=== PATIENT | male | born 1980 | race African-American/Black ===

== ENCOUNTER 2017-08-13 23:49 | Emergency (ER) | payer SELFPAY ==
[~2017-08-13] VITALS: Ht 182.9 cm; Wt 77.1 kg
[2017-08-14 00:15] VITALS: BP 162/92
[2017-08-14 05:30] VITALS: BP 162/92
--- NOTE | 2017-08-14 06:16 | Emergency Room Report ---
History of Present Illness General Chief Complaint: General Complaint Source: Patient, EMS Present Illness HPI Patient was brought in by paramedics Patient had been loitering at a fast food restaurant Upon arrival of police and paramedics patient requested to be taken to a hospital There was no other medical complaint provided Here the patient states that he wants to sleep He also reports that he was hungry Denies any headache denies any chest pain History had to be obtained on several different attempts as the patient refuses to answer questions and essentially requesting to be allowed to sleep Allergies: Coded Allergies: No Known Allergies (Unverified , 08/13/17) Patient History Past Medical History: see triage record Pertinent Family History: none Reviewed Nursing Documentation: PMH: Agreed, PSxH: Agreed Nursing Documentation-PMH Past Medical History: No Stated History Review of Systems All Other Systems: negative except mentioned in HPI Physical Exam Vital Signs Date Time Temp Pulse Resp B/P (MAP) Pulse Ox O2 Delivery O2 Flow Rate FiO2 08/13/17 23:40 98.3 88 16 162/92 99 Room Air 98.2 Sp02 EP Interpretation: reviewed, normal General Appearance: well appearing - However appears mildly disheveled, no apparent distress Head: normocephalic, atraumatic Eyes: bilateral eye PERRL, bilateral eye EOMI ENT: hearing grossly normal, normal pharynx, TMs + canals normal, uvula midline Neck: full range of motion, supple, no meningismus, no bony tend Respiratory: lungs clear, normal breath sounds, no rhonchi, no respiratory distress, no retraction, no accessory muscle use Cardiovascular #1: normal peripheral pulses, regular rate, rhythm, no edema, no gallop, no JVD, no murmur Gastrointestinal: normal bowel sounds, non tender, soft, no mass, no organomegaly, non-distended, no guarding, no hernia, no pulsatile mass, no rebound Genitourinary: no CVA tenderness Musculoskeletal: normal inspection - Patient has bandage on the right foot refuses to be examined Neurologic: oriented x3, responsive, motor strength/tone normal, sensory intact Psychiatric: mood/affect normal Skin: normal color, no rash, warm/dry, palpation normal Lymphatic: normal inspection, no adenopathy Medical Decision Making Diagnostic Impression: Primary Impression: Weakness ER Course Multiple differentials are entertained including but not limited to infectious, neurological neurosurgical pathology Metabolic pathology Patient otherwise remains hemodynamically stable Has a benign reevaluation After resting in observation for prolonged status in the ER patient again requesting to eat At this time walked out of the emergency room, Last Vital Signs Date Time Temp Pulse Resp B/P (MAP) Pulse Ox O2 Delivery O2 Flow Rate FiO2 08/13/17 23:40 98.3 88 16 162/92 99 Room Air 98.2 Status: improved Disposition: ELOPED Condition: Improved Referrals: NOT CHOSEN IPA/,REFERRING (PCP) GARETT GUTIERREZ D.O. Aug 14, 2017 06:16
== END 2017-08-14 05:30 | disposition left against medical advice (07) ==
LOC: EDBD 23:49 → EMR 08-14 00:30
DX: R53.1 Weakness (principal)
CPT/HCPCS: 99283